=== PATIENT | male | born 1995 | race African-American/Black ===

== ENCOUNTER 2022-01-08 13:03 | Emergency (ER) | payer OTHER ==
[~2022-01-08] VITALS: Ht 177.8 cm; Wt 106.8 kg
[2022-01-08 13:15] VITALS: BP 140/87; TEMP 97.4
[2022-01-08 14:05] LABS: COLLECTION METHOD CLEAN CATCH
[2022-01-08 14:22] LABS: PH 5.5 (5.0-8.5); URINE APPEARANCE Clear (CLEAR/HAZY); URINE BLOOD TRACE-INTACT (NEGATIVE); URINE COLOR Amber (YELLOW); URINE GLUCOSE Negative (NEGATIVE); URINE KETONE Negative (NEGATIVE); URINE NITRATE Negative (NEGATIVE); URINE PROTEIN(semi-quant) TRACE (NEGATIVE); URINE UROBILINOGEN 0.2 E.U/dL (0.2-1.0)
[2022-01-08 14:24] LABS: MUCOUS Present (NOT PRESENT); SQUAMOUS EPITHELIAL None Seen /hpf (0-10); URINE BACTERIA None Seen /hpf (NONE SEEN); URINE RBC 0-2 /hpf (0-2)
[2022-01-08] MEDS ORDERED: MOTRIN 800800 MG/TAB PO (15:09)
[2022-01-08] MEDS ORDERED: NORCO 325 MG-51 TAB PO (15:09)
[2022-01-08 16:12] VITALS: PULSE 70
== END 2022-01-08 16:12 | disposition home or self-care (01) ==
LOC: COL.ER 13:03
PROVIDERS: Personal Emergency Response Attendant
DX: S70.01XA Contusion of right hip, initial encounter (principal); W13.2XXA Fall from, out of or through roof, initial encounter